=== PATIENT | female | born 1945 | race Caucasian/White ===

== ENCOUNTER 2017-11-22 18:55 | Emergency (ER) | payer MEDICARE, BC ==
[~2017-11-22 18:55] MED LIST: ALT5C PO; AMIT150T PO; CA C1TAB99; CALC-1197 PO; CITA20TA11 PO; GLYB5TAB7 PO; INSU100V37 SQ; LINA5TAB4 PO; MAGN400T6 PO; METF500T PO; METO-467 PO; MULT-933 PO; ONDA4TAB12 PO
== END 2017-11-22 19:31 | disposition left against medical advice (07) ==
LOC: ER 18:56
DX: R07.81 Pleurodynia (principal); Z53.21 Procedure and treatment not carried out due to patient leaving prior to being seen by health care provider